=== PATIENT | female | born 1970 | race Hispanic/Latino ===

== ENCOUNTER 2021-07-03 20:24 | Emergency (ER) | payer BC ==
[~2021-07-03 20:24] MED LIST: Iopamidol-370 76% 500 ML 1 ML ONE
[2021-07-03] MEDS ORDERED: Ondansetron PF 4 MG/2 ML Vial ONE ×2 (21:41)
[2021-07-03] MEDS ORDERED: Ketorolac Tromethamine 30 MG/ML VIAL ONE ×2 (21:41)
[2021-07-03] MEDS ORDERED: Morphine 4 MG/ML VIAL ONE (21:41)
[2021-07-03 21:43] LABS: #Basophils 0.1 thou/uL (0.0-0.2); #Eosinphils 0.2 thou/uL (0.0-0.7); #Lymphocytes 3.8 thou/uL (1.20-3.40); #Monocytes 0.6 thou/uL (0.11-0.59); #Neutrophils 4.9 thou/uL (1.40-6.50); %Basophils 0.7 % (0.0-1.0); %Eosinophils 1.9 % (0.0-10.0); %Lymphocytes 40.2 % (21.0-51.0); %Monocytes 5.9 % (0.0-10.0); %Neutrophils 51.3 % (42.0-75.0); Hemoglobin 16.9 g/dL (12.0-16.0); Mean Corpuscular HGB CONC 36.6 g/dL (32.0-36.0); Mean Corpuscular Hemoglobin 33.4 pg (27.0-31.0); Mean Corpuscular Volume 91.2 fL (78.0-98.0); Platelet Count 308 thou/uL (130-400); Red Blood Cell (RBC) Count 5.07 mill/uL (4.20-5.40); White Blood Cell (WBC) Count 9.6 thou/uL (4.8-10.8)
[2021-07-03 22:04] LABS: ALT (SGPT) 25 U/L (8-55); AST (SGOT) 25 U/L (5-34); Albumin 3.8 g/dL (3.5-5.0); Alkaline Phosphatase 107 U/L (40-110); Anion Gap 13 mmol/L (10-20); BUN (Urea Nitrogen) 10 mg/dL (9.8-20.1); Bilirubin, Total 0.5 mg/dL (0.2-1.2); Calc. Creatinine Clearance 0 mL/min (70-130); Calcium 9.4 mg/dL (7.8-10.44); Carbon Dioxide 27 mmol/L (22-29); Chloride 102 mmol/L (98-107); Digoxin Less than 0.15 ng/mL (0.8-2.0); Glucose 104 mg/dL (70-105); Lipase 24 U/L (8-78); Magnesium 2.2 mg/dL (1.6-2.6); Potassium 3.6 mmol/L (3.5-5.1); Protein, Total 7.8 g/dL (6.0-8.3); Sodium 138 mmol/L (136-145)
== END 2021-07-04 01:38 | disposition home or self-care (01) ==
LOC: ERS 20:24
DX: R09.1 Pleurisy (principal); R07.89 Other chest pain; Z87.19 Personal history of other diseases of the digestive system
CPT/HCPCS: 71045; 71275; 80053; 80162; 83690; 83735; 83880; 84484; 85025; 93005; 96374; 96375; J1885; J2270; J2405; Q9967

== ENCOUNTER 2024-01-17 11:58 | Emergency (ER) | payer BC ==
[2024-01-17 12:34] LABS: #Basophils 0.03 10x3/uL (0.0-0.2); %Basophils 0.4 % (0.0-1.0); %Eosinophils 1.9 % (0.0-10.0); %Lymphocytes 31.1 % (21.0-51.0); %Neutrophils 60.1 % (42.0-75.0); Hematocrit 44.6 % (36.0-47.0); Hemoglobin 15.2 g/dL (12.0-16.0); Mean Corpuscular HGB CONC 34.1 g/dL (32.0-36.0); Mean Corpuscular Hemoglobin 31.5 pg (27.0-31.0); Mean Corpuscular Volume 92.5 fL (78.0-98.0); Mean Platelet Volume 9.3 fL (7.4-10.4); Platelet Count 272 10x3/uL (130-400); RBC Distribution Width 12.9 % (11.5-14.5); Red Blood Cell (RBC) Count 4.82 mill/uL (4.20-5.40)
[2024-01-17 12:53] LABS: ALT (SGPT) 16 U/L (8-55); AST (SGOT) 21 U/L (5-34); Albumin 3.4 g/dL (3.5-5.0); Alkaline Phosphatase 104 U/L (40-110); Anion Gap 8 mmol/L (10-20); BUN (Urea Nitrogen) 12 mg/dL (9.8-20.1); Bilirubin, Total 0.5 mg/dL (0.2-1.2); Calc. Creatinine Clearance 0 mL/min (70-130); Calcium 9.6 mg/dL (7.8-10.44); Carbon Dioxide 27 mmol/L (22-29); Chloride 107 mmol/L (98-107); Estimated GFR 88; Globulin 3.7 g/dL (2.4-3.5); Glucose 95 mg/dL (70-105); Lipase 21 U/L (8-78); Potassium 3.4 mmol/L (3.5-5.1); Protein, Total 7.1 g/dL (6.0-8.3); Sodium 139 mmol/L (136-145)
[2024-01-17 12:56] LABS: Troponin I Less than 0.010 ng/mL (< 0.028)
[2024-01-17] MEDS ORDERED: Nitroglycerin 2% Ointment 1 INCH/1 GM Packet ONE (14:46)
[2024-01-17 16:10] LABS: Troponin I Less than 0.010 ng/mL (< 0.028)
[2024-01-17] MEDS ORDERED: Ketorolac Tromethamine 30 MG (1 mL) VIAL ONE (16:48)
== END 2024-01-17 16:52 | disposition home or self-care (01) ==
LOC: ERS 11:58
DX: R07.9 Chest pain, unspecified (principal)
CPT/HCPCS: 36415; 71045; 80053; 83690; 84484; 85025; 93005; 96372; J1885